=== PATIENT | female | born 1980 | race Caucasian/White ===

== ENCOUNTER 2021-06-24 08:57 | Emergency (ER) | payer SELFPAY ==
[~2021-06-24] VITALS: Ht 167.6 cm; Wt 70.0 kg
[2021-06-24] MEDS ORDERED: HALOPERIDOL LACTATE 5MG/ML VIAL IM ONE (09:30)
[2021-06-24] MEDS ORDERED: LORAZEPAM 2MG/ML CPJ IM ONE (09:30)
[2021-06-24 11:23] LABS: BASOPHILS % 0.4 % (0.0-2.0); EOSINOPHILS % 1.1 % (0.0-5.0); HEMATOCRIT. 27.9 % (36.0-48.0); HEMOGLOBIN. 9.5 g/dL (12.0-16.0); LYMPHOCYTES % 36.4 % (20.0-50.0); MEAN CORPUSCULAR HEMOGLOBIN 30.7 pg (28.0-32.0); MEAN PLATELET VOLUME 8.8 fl (7.4-10.4); MONOCYTES % 14.7 % (2.0-8.0); NEUTROPHILS % 47.4 % (40.0-76.0); PLATELET 187 x1000/uL (130-400); RED CELL DISTRIBUTION WIDTH 17.1 % (11.6-14.6)
[2021-06-24] MEDS ORDERED: LACTATED RINGERS 1,400 ML IV ONE (11:30)
[2021-06-24 11:35] LABS: INR 1.1; PROTHROMBIN TIME 12.1 sec (9.6-11.0)
[2021-06-24 11:36] LABS: CHLORIDE 108 mEq/L (98-107)
[2021-06-24 11:40] LABS: ETHANOL BLOOD < 10 mg/dL
[2021-06-24 11:59] LABS: HCG SCREEN NEGATIVE
[2021-06-25 06:46] LABS: CLARITY URINE CLOUDY (CLEAR); COLOR URINE DARK YELLOW (YELLOW); KETONES URINE TRACE (NEGATIVE); LEUKOCYTE ESTERASE URINE 1+ (NEGATIVE); NITRITE URINE POSITIVE (NEGATIVE); OCCULT BLOOD URINE 3+ (NEGATIVE); PH URINE 6.5 (4.5-8.0); PROTEIN URINE 1+ (NEGATIVE); SPECIFIC GRAVITY URINE 1.031 (1.005-1.030)
[2021-06-25 06:56] LABS: *BARBITURATES SCREEN URINE NEGATIVE (NEGATIVE); *BENZODIAZEPINES SCREEN URINE NEGATIVE (NEGATIVE); *COCAINE SCREEN URINE NEGATIVE (NEGATIVE); METHADONE URINE SCREEN NEGATIVE (NEGATIVE); OPIATES URINE SCREEN NEGATIVE (NEGATIVE); PHENCYCLIDINE URINE SCREEN NEGATIVE (NEGATIVE)
[2021-06-25 07:02] LABS: *AMPHETAMINES SCREEN URINE PRESUMTIVE POSITIVE (NEGATIVE); CANNABINOID URINE SCREEN PRESUMTIVE POSITIVE (NEGATIVE)
[2021-06-25 07:56] VITALS: BP 106/63
== END 2021-06-25 08:56 | disposition home or self-care (01) ==
LOC: ER 09:08 → EDBD 09:08 → ER 06-25 08:56
DX: F23 Brief psychotic disorder (principal); G93.40 Encephalopathy, unspecified; R45.1 Restlessness and agitation; I95.9 Hypotension, unspecified; F91.8 Other conduct disorders; D64.9 Anemia, unspecified; Z73.6 Limitation of activities due to disability; Z59.0 Homelessness
CPT/HCPCS: 36415; 70450; 71045; 80048; 80076; 80178; 80305; 80307; 80320; 80329; 81003; 82140; 82962; 83930; 84443; 84703; 85025; 85610; 86592; 87086; 96360; 96372; 99285; J1630; J2060; J7120; G0480